=== PATIENT | male | born 1970 | race Caucasian/White ===

== ENCOUNTER 2020-09-29 07:05 | Day surgery (SDC) | payer OTHER, BC ==
[~2020-09-29] VITALS: Ht 177.8 cm; Wt 92.0 kg
[2020-09-29] MEDS ORDERED: ZETIA 10MG TAB10 MG PO (07:34)
[2020-09-29 07:36] VITALS: BP 139/96; PULSE 68; TEMP 97.6
[2020-09-29] MEDS ORDERED: GLUCOSAMINE 1000 PO (07:36)
[2020-09-29 08:55] VITALS: BP 114/84; PULSE 71; TEMP 97.2
--- NOTE | 2020-09-29 08:55 | NUR ---
The patient arrived back to [facility] from the endoscopy suite at this time. The patient appears alert and oriented and ambulated from the cart to the recliner in his room with the stand by assistance of one nurse. Vital signs were started at this time. Call light is within reach. at bedside. Will continue to monitor the patient.
[2020-09-29 09:10] VITALS: BP 110/82; PULSE 70
--- NOTE | 2020-09-29 09:10 | NUR ---
The patient was given some water and wheat toast and appears to be tolerating both well. Vital signs appear stable. Will continue to monitor the patient.
[2020-09-29 09:25] VITALS: BP 138/93; PULSE 61
--- NOTE | 2020-09-29 09:25 | NUR ---
Discharge instructions were reviewed with the patient and his at this time. They both verbalized understanding and have no questions for the nurse at this time. The patient's IV to his right anecubital was removed and a pressure dressing was applied to the site. The nurse instructed the patient to get dressed and notify the staff when he is ready to be escorted out.
--- NOTE | 2020-09-29 09:31 | NUR ---
The patient was escorted out via wheelchair to a private vehicle by CARLO Singh. The patient's belongings and discharge paperwork were sent with him. The patient's is present to drive him home.
== END 2020-09-29 09:31 | disposition home or self-care (01) ==
LOC: SDCO 07:05
DX: Z12.11 Encounter for screening for malignant neoplasm of colon (principal); K64.0 First degree hemorrhoids; E78.5 Hyperlipidemia, unspecified; Z20.822 Contact with and (suspected) exposure to COVID-19
CPT/HCPCS: J2704; J7030